=== PATIENT | male | born 1950 | race Caucasian/White ===

== ENCOUNTER 2018-02-22 11:33 | Emergency (ER) | payer OTHER ==
[2018-02-22 12:08] LABS: PLATELET COUNT 155 10^3/uL (150-400)
--- NOTE | 2018-02-22 12:48 | EDPHY ---
HPI/HX/ROS/PE/MDM Narrative: CHIEF COMPLAINT: Left flank pain HPI: The patient is a 68-year-old male with a history of frequent urination. He complains of left flank pain over the last week that has been gradually worsening in intensity. He denies any acute trauma. The patient was seen by his primary care physician a few days ago and it sounds like they started him on Macrobid pending a urine culture. This urine culture came back negative today. The patient however, still complains of left flank plain. He denies any pain in his penis, blood in urine, but states he is urinating more frequently than normal. Normal bowel movements. No fever or chills. REVIEW OF SYSTEMS: Aside from elements discussed in the HPI, a comprehensive 10-point review of systems was reviewed and is negative. PMH: No history of kidney stone. SOCIAL HISTORY: Denies alcohol or drug abuse. PHYSICAL EXAM: General:Patient is alert, in no acute distress. ENT:Eyes are normal to inspection. ENT inspection normal. Neck: Normal inspection. Full range of motion. Respiratory:No respiratory distress. Breath sounds normal bilaterally. Cardiovascular: Regular rate and rhythm. Strong peripheral pulses. Normal cap refill. Abdomen:The abdomen is nontender to palpation. There are no peritoneal signs. There are normal bowel sounds. Back: Normal to inspection. Diffuse mild tenderness to palpation throughout the left flank. Skin: Normal color. No rash. Warm and dry. Extremities: Normal appearance. Full range of motion. Neuro: Oriented x3. Normal motor function. Normal sensory function. MDM: This patient presents with approximately 1 week of atraumatic left flank pain. I highly doubt that this represents pyelonephritis, kidney stones secondary to non completely normal urinalysis and negative CTA of the abdomen and pelvis. Patient is quite comfortable on exam. His labs are normal. The etiology of his pain is unclear, but given negative workup, I suspect this is likely musculoskeletal in that the patient can follow up with his primary care physician for further evaluation. Patient is comfortable with this plan. He understands that the etiology of his pain has not been determined. - Data Points Imaging Results: Imaging Impressions Abdomen/Pelvis CT 02/22/18 11:57 Impression: 1. No evidence of renal or ureteral calculi. Mild fat stranding is seen around the bladder. Correlation with urinary studies recommended. 2. Trace fluid in the pelvis. 3. A 5.3 mm right lower lobe nodule is noted. Correlation with any prior imaging recommended. Otherwise, would consider 12 month follow-up. Laboratory Results: Laboratory Results 02/22/18 11:50 02/22/18 12:00 02/22/18 02/22/18 02/22/18 12:00 12:00 11:50 WBC 5.47 10^3/uL 10^3/uL (3.80-9.50) RBC 5.54 10^6/uL 10^6/uL (4.40-6.38) Hgb 17.0 g/dL g/dL (13.7-17.5) Hct 50.2 % % (40.0-51.0) MCV 90.6 fL fL (81.5-99.8) MCH 30.7 pg pg (27.9-34.1) MCHC 33.9 g/dL g/dL (32.4-36.7) RDW 12.7 % % (11.5-15.2) Plt Count 155 10^3/uL 10^3/uL (150-400) MPV 11.3 fL fL (8.7-11.7) Neut % (Auto) 56.7 % % (39.3-74.2) Lymph % (Auto) 29.6 % % (15.0-45.0) Ector % (Auto) 10.4 % % (4.5-13.0) Eos % (Auto) 1.8 % % (0.6-7.6) Baso % (Auto) 1.1 % % (0.3-1.7) Nucleat RBC Rel Count 0.0 % % (0.0-0.2) Absolute Neuts (auto) 3.10 10^3/uL 10^3/uL (1.70-6.50) Absolute Lymphs (auto) 1.62 10^3/uL 10^3/uL (1.00-3.00) Absolute Monos (auto) 0.57 10^3/uL 10^3/uL (0.30-0.80) Absolute Eos (auto) 0.10 10^3/uL 10^3/uL (0.03-0.40) Absolute Basos (auto) 0.06 10^3/uL 10^3/uL (0.02-0.10) Absolute Nucleated RBC 0.00 10^3/uL 10^3/uL (0-0.01) Immature Gran % 0.4 % % (0.0-1.1) Immature Gran # 0.02 10^3/uL 10^3/uL (0.00-0.10) Sodium 142 mEq/L mEq/L (135-145) Potassium 4.4 mEq/L mEq/L (3.3-5.0) Chloride 105 mEq/L mEq/L (97-110) Carbon Dioxide 28 mEq/l mEq/l (22-31) Anion Gap 9 mEq/L mEq/L (8-16) BUN 17 mg/dL mg/dL (7-23) Creatinine 1.0 mg/dL mg/dL (0.7-1.3) Estimated GFR > 60 Glucose 84 mg/dL mg/dL (70-100) Calcium 9.6 mg/dL mg/dL (8.5-10.4) Urine Color YELLOW Urine Appearance CLEAR Urine pH 6.0 (5.0-7.5) Ur Specific Mccall 1.012 (1.002-1.030) Urine Protein NEGATIVE (NEGATIVE) Urine Ketones NEGATIVE (NEGATIVE) Urine Blood NEGATIVE (NEGATIVE) Urine Nitrate NEGATIVE (NEGATIVE) Urine Bilirubin NEGATIVE (NEGATIVE) Urine Urobilinogen NEGATIVE EU EU (0.2-1.0) Ur Leukocyte Esterase NEGATIVE (NEGATIVE) Urine Glucose NEGATIVE (NEGATIVE) General Time Seen by Provider: 02/22/18 11:46 Initial Vital Signs: Initial Vital Signs Temperature (C) 36.5 C 02/22/18 11:37 Heart Rate 72 02/22/18 11:37 Respiratory Rate 18 02/22/18 11:37 Blood Pressure 116/68 02/22/18 11:37 O2 Sat (%) 95 02/22/18 11:37 O2 Delivery Mode Room Air Allergies/Adverse Reactions: No Known Allergies Allergy (Verified 02/22/18 11:37) Home Medications: Medication Instructions Recorded Gabapentin 02/22/18 Levothyroxine 02/22/18 Departure - Departure Disposition: Home, Routine, Self-Care Clinical Impression: Flank pain Condition: Good Instructions: Flank Pain (ED) Additional Instructions: Follow-up with your primary care physician within 72 hr for re-evaluation. Return to the emergency department for worsening pain, fever, vomiting or other concerns. Referrals: [facility] [Other] - As per Instructions
[2018-02-22 13:00] VITALS: BP 115/67
== END 2018-02-22 13:00 | disposition home or self-care (01) ==
DX: R10.9 Unspecified abdominal pain (principal)